=== PATIENT | female | born 1965 | race Hispanic/Latino ===

== ENCOUNTER 2018-06-27 22:02 | Emergency (ER) | payer BC | END 2018-06-27 22:13 | disposition left against medical advice (07) | LOC: ERS 22:02 | DX: Z53.21 Procedure and treatment not carried out due to patient leaving prior to being seen by health care provider (principal) ==

== ENCOUNTER 2021-09-16 00:07 | Observation (INO) | payer BC, OTHER, SELFPAY ==
[2021-09-16 01:08] LABS: #Basophils 0.1 thou/uL (0.0-0.2); #Eosinphils 0.2 thou/uL (0.0-0.7); #Lymphocytes 2.8 thou/uL (1.20-3.40); #Monocytes 0.8 thou/uL (0.11-0.59); #Neutrophils 3.7 thou/uL (1.40-6.50); %Basophils 0.9 % (0.0-1.0); %Eosinophils 2.1 % (0.0-10.0); %Lymphocytes 37.6 % (21.0-51.0); %Monocytes 10.3 % (0.0-10.0); %Neutrophils 49.2 % (42.0-75.0); Hemoglobin 14.1 g/dL (12.0-16.0); Mean Corpuscular HGB CONC 33.8 g/dL (32.0-36.0); Mean Corpuscular Hemoglobin 32.7 pg (27.0-31.0); Mean Corpuscular Volume 96.9 fL (78.0-98.0); Mean Platelet Volume 8.9 fL (7.4-10.4); Platelet Count 192 thou/uL (130-400); RBC Distribution Width 12.3 % (11.5-14.5); Red Blood Cell (RBC) Count 4.31 mill/uL (4.20-5.40); White Blood Cell (WBC) Count 7.6 thou/uL (4.8-10.8)
[2021-09-16] MEDS ORDERED: Lorazepam 2 MG/ML VIAL ONE ×2 (01:17→01:30)
[2021-09-16 01:29] LABS: ALT (SGPT) 23 U/L (8-55); AST (SGOT) 19 U/L (5-34); Albumin 3.8 g/dL (3.5-5.0); Alkaline Phosphatase 129 U/L (40-110); Anion Gap 10 mmol/L (10-20); BUN (Urea Nitrogen) 18 mg/dL (9.8-20.1); Bilirubin, Total 0.3 mg/dL (0.2-1.2); Calc. Creatinine Clearance 0 mL/min (70-130); Calcium 9.4 mg/dL (7.8-10.44); Carbon Dioxide 25 mmol/L (22-29); Chloride 109 mmol/L (98-107); Globulin 2.8 g/dL (2.4-3.5); Glucose 106 mg/dL (70-105); Protein, Total 6.6 g/dL (6.0-8.3); Sodium 140 mmol/L (136-145)
[2021-09-16] MEDS ORDERED: levETIRAcetam in NS 100 ML ONE (01:31)
[2021-09-16] MEDS ORDERED: Ondansetron PF 4 MG/2 ML Vial IVP PRN (03:05)
[2021-09-16] MEDS ORDERED: Acetaminophen 325 MG TAB PO PRN (03:05)
[2021-09-16] MEDS ORDERED: Acetaminophen 650 MG Suppository PR PRN (03:05)
[2021-09-16] MEDS ORDERED: Ondansetron ODT 4 MG TAB PO PRN (03:05)
[2021-09-16 05:54] VITALS: BMI 35.6
[2021-09-16] MEDS ORDERED: Dextrose 5% in Water 1,000 ML IV PRN (06:40)
[2021-09-16] MEDS ORDERED: HumaLOG 300 UNITS/3 ML VIAL SC PRN ×2 (06:40)
[2021-09-16] MEDS ORDERED: Dextrose 50% Abboject 50 ML SYRINGE SLOW IVP PRN (06:40)
[2021-09-16] MEDS: Enoxaparin Sodium 40 MG/0.4 ML SYRINGE SC SCH (08:13)
[2021-09-16 08:48] LABS: #Basophils 0.1 thou/uL (0.0-0.2); #Eosinphils 0.1 thou/uL (0.0-0.7); #Lymphocytes 2.2 thou/uL (1.20-3.40); #Monocytes 0.6 thou/uL (0.11-0.59); #Neutrophils 3.5 thou/uL (1.40-6.50); %Basophils 0.8 % (0.0-1.0); %Eosinophils 1.9 % (0.0-10.0); %Lymphocytes 34.4 % (21.0-51.0); %Monocytes 9.5 % (0.0-10.0); %Neutrophils 53.5 % (42.0-75.0); Hemoglobin 13.7 g/dL (12.0-16.0); Mean Corpuscular HGB CONC 33.3 g/dL (32.0-36.0); Mean Corpuscular Hemoglobin 32.1 pg (27.0-31.0); Mean Corpuscular Volume 96.5 fL (78.0-98.0); Platelet Count 182 thou/uL (130-400); RBC Distribution Width 12.3 % (11.5-14.5); Red Blood Cell (RBC) Count 4.25 mill/uL (4.20-5.40); White Blood Cell (WBC) Count 6.5 thou/uL (4.8-10.8)
[2021-09-16] MEDS ORDERED: OXcarbazepine 600 MG TAB PO SCH (09:00)
[2021-09-16 09:20] LABS: Anion Gap 10 mmol/L (10-20); BUN (Urea Nitrogen) 17 mg/dL (9.8-20.1); Calc. Creatinine Clearance 147 mL/min (70-130); Calcium 8.8 mg/dL (7.8-10.44); Carbon Dioxide 24 mmol/L (22-29); Chloride 109 mmol/L (98-107); Glucose 144 mg/dL (70-105); Potassium 3.6 mmol/L (3.5-5.1); Sodium 139 mmol/L (136-145)
[2021-09-16] MEDS: levETIRAcetam 500 MG TAB PO SCH ×2 (09:31→22:03)
[2021-09-16] MEDS: Lacosamide 50 mg Tablet PO SCH ×2 (09:32→22:03)
[2021-09-16] MEDS: OXcarbazepine 300 MG TAB PO SCH ×2 (09:32→22:04)
[2021-09-16] MEDS ORDERED: Diclofenac 1% 100 GM GEL TP PRN (10:47)
[2021-09-16 12:51] LABS: Bilirubin Negative (Negative); Blood, Urine Negative (Negative); Clarity Clear (Clear); Glucose, Urine (Dipstick) Normal (Negative); Ketone, Urine Negative (Negative); Leukocyte Negative Leu/uL (Negative); Nitrite Negative (Negative); Protein, Urine (Dipstick) Negative (Neg-Trace); RBC/HPF 0-3 HPF (0-3); Specific Gravity, Urine 1.029 (1.002-1.036); Squamous Epithelial 0-3 HPF (0-3); Urobilinogen Normal mg/dL (Less than 2); WBC/HPF 0-3 HPF (0-3); pH, Urine 6.5 (5.0-9.0)
[2021-09-16 13:01] LABS: Bacteria/HPF 1+ HPF (None Seen)
[2021-09-16 14:24] LABS: Amphetamine Not Detected (NotDetected); Barbiturates Screen Not Detected (NotDetected); Benzodiazepine Screen Detected (NotDetected); Cocaine Metabolite Screen Not Detected (NotDetected); Methadone Not Detected (NotDetected); Methamphetamine Not Detected (NotDetected); Opiate Screen Not Detected (NotDetected); Oxycodone Screen Not Detected (NotDetected); Phencyclidine (PCP) Not Detected (NotDetected); THC/Cannabinoid Screen Not Detected (NotDetected); Tricyclic Screen Detected (NotDetected)
[2021-09-16 17:16] LABS: SARS-CoV-2 PCR by NAA Not Detected (NotDetected)
[2021-09-16] MEDS ORDERED: Atorvastatin Calcium 40 MG TAB PO SCH (21:00)
[2021-09-17] MEDS: OXcarbazepine 300 MG TAB PO SCH (08:51)
[2021-09-17] MEDS: levETIRAcetam 500 MG TAB PO SCH (08:52)
[2021-09-17] MEDS: Lacosamide 50 mg Tablet PO SCH (08:52)
[2021-09-17] MEDS: Enoxaparin Sodium 40 MG/0.4 ML SYRINGE SC SCH (08:52)
[2021-09-17] MEDS ORDERED: Aspirin Chewable 81 MG TAB PO SCH (09:00)
[2021-09-17] MEDS ORDERED: metFORMIN 500 MG TAB PO SCH (09:00)
[2021-09-17] MEDS ORDERED: Nortriptyline HCl 25 MG CAP PO SCH (09:00)
[2021-09-17] MEDS ORDERED: Propranolol HCl LA 80 MG CAP PO SCH (09:00)
[2021-09-17 13:52] VITALS: BP 137/91; TEMP 98.1
== END 2021-09-17 15:19 | disposition home or self-care (01) ==
LOC: ERS 00:07 → NEURO 02:09
PROVIDERS: ADMIT Student in an Organized Health Care Education/Training Program; ATTEND Family Medicine
DX: R56.9 Unspecified convulsions (principal); E11.9 Type 2 diabetes mellitus without complications; I10 Essential (primary) hypertension; E78.5 Hyperlipidemia, unspecified; G93.40 Encephalopathy, unspecified; N32.81 Overactive bladder; K21.9 Gastro-esophageal reflux disease without esophagitis; E66.9 Obesity, unspecified; Z68.35 Body mass index [BMI] 35.0-35.9, adult; Z86.73 Personal history of transient ischemic attack (TIA), and cerebral infarction without residual deficits; Z79.82 Long term (current) use of aspirin; Z79.84 Long term (current) use of oral hypoglycemic drugs; Z79.899 Other long term (current) drug therapy; Z88.5 Allergy status to narcotic agent; Z96.0 Presence of urogenital implants; Z20.822 Contact with and (suspected) exposure to COVID-19
CPT/HCPCS: 36415; 36416; 70450; 80053; 80177; 80306; 81001; 85025; 95816; 95819; 95957; 96365; 96372; 96375; G0378; J1650; J1953; J2060; U0003; U0005

== ENCOUNTER 2022-08-11 19:53 | Emergency (ER) | payer OTHER | END 2022-08-11 20:47 | disposition home or self-care (01) | LOC: ERS 19:53 | DX: R56.9 Unspecified convulsions (principal); I10 Essential (primary) hypertension; E11.9 Type 2 diabetes mellitus without complications; E78.5 Hyperlipidemia, unspecified; Z79.82 Long term (current) use of aspirin; Z79.899 Other long term (current) drug therapy | CPT/HCPCS: 36415; 80164; 80177; 93005 ==